=== PATIENT | female | born 2000 | race Caucasian/White ===

== ENCOUNTER 2019-05-29 14:42 | Emergency (ER) | payer OTHER ==
--- NOTE | 2019-05-29 14:55 | UC ---
UC General HPI - History of Current Complaint Stated Complaint: SORE THROAT
[2019-05-29 15:07] VITALS: BP 112/78
--- NOTE | 2019-05-29 15:28 | UC ---
Throat Pain/Nasal Saud HPI - HPI Summary HPI Summary: Pt presents with c/o sudden onset of ST 4 days ago. Pt is a student at [employer]. Pt's PCP sent a rx for cefdinir and began taking it 2 days ago with no improvement in ST symptom. - History of Current Complaint Chief Complaint: UCGeneralIllness Stated Complaint: SORE THROAT Time Seen by Provider: 05/29/19 14:57 Hx Obtained From: Patient ?: No Onset/Duration: Sudden Onset, Lasting Days, Still Present Severity: Mild Pain Intensity: 0 Cough: None Associated Signs & Symptoms: Positive: Dysphagia, Fever - Epiglottits Risk Factors Epiglottis Risk Factors: Sudden Onset - Allergies/Home Medications Allergies/Adverse Reactions: Allergies Allergy/AdvReac Type Severity Reaction Status Date / Time No Known Allergies Allergy Verified 05/29/19 15:05 Home Medications: Home Medications Cefdinir cap* [Cefdinir 300 MG cap (NF)] 300 mg PO BID 05/29/19 [History Confirmed 05/29/19] PMH/Surg Hx/FS Hx/Imm Hx Previously Healthy: Yes - Surgical History Surgical History: None - Family History Known Family History: Positive: Cardiac Disease - Social History Occupation: Student Lives: Dormitory/Roommates Alcohol Use: None Substance Use Type: None Smoking Status (MU): Current Some Day Smoker Type: Cigarettes, eCigarettes Have You Smoked in the Last Year: Yes - Immunization History Vaccination Up to Date: Yes Review of Systems All Other Systems Reviewed And Are Negative: Yes Constitutional: Positive: Fever, Chills Skin: Positive: Negative Eyes: Positive: Negative ENT: Positive: Sore Throat Respiratory: Positive: Cough - infrequent Cardiovascular: Positive: Negative Gastrointestinal: Positive: Negative Genitourinary: Positive: Negative Motor: Positive: Negative Neurovascular: Positive: Negative Musculoskeletal: Positive: Negative Neurological: Positive: Negative Psychological: Positive: Negative Is Patient Immunocompromised?: No Physical Exam Triage Information Reviewed: Yes Appearance: Well-Appearing Vital Signs: Initial Vital Signs Temp 97.8 F 05/29/19 15:05 Pulse 86 05/29/19 15:05 Resp 17 05/29/19 15:05 BP 112/78 05/29/19 15:05 Pulse Ox 98 05/29/19 15:05 Vital Signs Reviewed: Yes Eye Exam: Normal ENT: Positive: Pharyngeal erythema Dental Exam: Normal Neck exam: Normal Respiratory Exam: Normal Cardiovascular Exam: Normal Musculoskeletal Exam: Normal Neurological Exam: Normal Psychological Exam: Normal Skin Exam: Normal Throat Pain/Nasal Course/Dx - Differential Dx/Diagnosis Differential Diagnosis/HQI/PQRI: Influenza, Pharyngitis, Tonsillitis Provider Diagnosis: Sore throat (viral) Discharge ED - Sign-Out/Discharge Documenting (check all that apply): Patient Departure All imaging exams completed and their final reports reviewed: No Studies - Discharge Plan Condition: Stable Disposition: HOME Patient Education Materials: Pharyngitis (ED) Referrals: [facility] [Outside] - If Needed No Primary Care Phys,NOPCP [Primary Care Provider] - Additional Instructions: Please follow up with your PC as needed. Your PCP has provided a prescription for an antibiotic previous to your arrival at our facility. Please consult with them as to how to proceed with that prescription. - Billing Disposition and Condition Condition: STABLE Disposition: Home
[2019-05-29 15:29] LABS: Influenza A Molecular Negative (Negative); Influenza B Molecular Negative (Negative)
== END 2019-05-29 16:01 | disposition home or self-care (01) ==
LOC: UCCORT 14:42
DX: J02.9 Acute pharyngitis, unspecified (principal); F17.210 Nicotine dependence, cigarettes, uncomplicated; F17.290 Nicotine dependence, other tobacco product, uncomplicated
CPT/HCPCS: 99201; G0463